=== PATIENT | female | born 2000 | race Caucasian/White ===

== ENCOUNTER 2018-09-06 13:06 | Outpatient (CLI) | payer BC | END 2018-09-06 15:20 | disposition home or self-care (01) | LOC: OBT 13:06 → L-D 13:06 → OBT 15:20 | DX: O26.892 Other specified pregnancy related conditions, second trimester (principal); Z3A.22 22 weeks gestation of pregnancy; R10.2 Pelvic and perineal pain | CPT/HCPCS: Z7500 ==